=== PATIENT | male | born 1955 | race Caucasian/White ===

== ENCOUNTER 2018-04-20 11:36 | Outpatient (REF) | payer MEDICARE, SELFPAY ==
[2018-04-20 20:41] LABS: Anion Gap 8.9 mmol/L (3-11); BUN 7 mg/dL (7-18); CO2 25.1 mmol/L (21.0-32.0); CREATININE 0.81 mg/dL (0.70-1.30); Calcium 8.7 mg/dL (8.5-10.1); Chloride 100 mmol/L (98-107); Cholesterol 217 mg/dL (50-200); Glucose 109 mg/dL (70-100); HDL Cholesterol 57 mg/dL (40-60); LDL CHOLESTEROL 148 mg/dL (<100); Potassium 4.7 mmol/L (3.5-5.1); Sodium 134 mmol/L (136-145); Triglyceride 98 mg/dL (30-150)
== END 2018-04-20 11:56 ==
LOC: NCHCN 11:36
PROVIDERS: PCP Specialist/Technologist Athletic Trainer; Visit Provider Specialist/Technologist Athletic Trainer
DX: I10 Essential (primary) hypertension (principal); E78.00 Pure hypercholesterolemia, unspecified
CPT/HCPCS: 80048; 80061; 83721

== ENCOUNTER 2019-04-26 09:23 | Outpatient (REF) | payer MEDICARE, SELFPAY ==
[2019-04-26 20:22] LABS: Mean Corp. HGB Concentration 34.1 g/dL (32.0-36.0); Mean Corpuscular Hemoglobin 33.3 pg (27.0-33.0); Mean Corpuscular Volume 97.6 fL (80-95); Mean Platelet Volume 11.2 fL (8.0-11.0); Platelet Count 179 x1000/uL (130-400); RBC Distribution Width 13.3 % (11.8-14.1); White Blood Cell Count 6.07 k/cumm (4.4-10.8)
[2019-04-26 20:35] LABS: ALT 29 U/L (16-63); AST 26 U/L (15-37); Albumin 3.9 g/dL (3.4-5.0); Alkaline Phosphatase 49 U/L (46-116); BUN 8 mg/dL (7-18); CREATININE 0.88 mg/dL (0.70-1.30); Calcium 8.8 mg/dL (8.5-10.1); Calculated LDL 132 mg/dL; Chloride 100 mmol/L (98-107); Cholesterol 204 mg/dL (50-200); Glucose 117 mg/dL (70-100); HDL Cholesterol 55 mg/dL (40-60); Magnesium 1.8 mg/dL (1.8-2.4); Potassium 4.4 mmol/L (3.5-5.1); Sodium 137 mmol/L (136-145); Total Protein 7.2 g/dL (6.4-8.2); Triglyceride 88 mg/dL (30-150)
== END 2019-04-26 09:43 ==
LOC: NCHCN 09:23
PROVIDERS: PCP Specialist/Technologist Athletic Trainer; Visit Provider Specialist/Technologist Athletic Trainer
DX: E11.9 Type 2 diabetes mellitus without complications (principal); D64.9 Anemia, unspecified; I10 Essential (primary) hypertension
CPT/HCPCS: 80053; 80061; 85027; 83735

== ENCOUNTER 2019-10-27 10:29 | Outpatient (REF) | payer MEDICARE, SELFPAY ==
[2019-10-27 18:58] LABS: HCT 43.3 % (40.0-50.0); Mean Corp. HGB Concentration 34.6 g/dL (32.0-36.0); Mean Corpuscular Hemoglobin 33.9 pg (27.0-33.0); Mean Platelet Volume 10.1 fL (8.0-11.0); Platelet Count 186 x1000/uL (130-400); RBC 4.42 m/cumm (4.50-6.00); RBC Distribution Width 13.4 % (11.8-14.1); White Blood Cell Count 5.59 k/cumm (4.4-10.8)
[2019-10-27 19:31] LABS: Calculated LDL 126 mg/dL (<100); Cholesterol 195 mg/dL (<200); HDL Cholesterol 57 mg/dL (40-60); TSH 1.72 uIU/mL (0.36-3.74); Triglyceride 64 mg/dL (<150)
== END 2019-10-27 10:49 ==
LOC: NCHCN 10:29
PROVIDERS: PCP Specialist/Technologist Athletic Trainer; Visit Provider Nurse Practitioner Family
DX: E11.9 Type 2 diabetes mellitus without complications (principal); D64.9 Anemia, unspecified; E78.00 Pure hypercholesterolemia, unspecified; K70.31 Alcoholic cirrhosis of liver with ascites
CPT/HCPCS: 80061; 85027; 84443

== ENCOUNTER 2020-04-26 10:15 | Outpatient (REF) | payer MEDICARE, SELFPAY ==
[2020-04-26 19:34] LABS: HCT 41.9 % (40.0-50.0); HGB 14.3 g/dL (13.5-17.5); MCH 34.5 pg (27.0-33.0); MCHC 34.1 % (32.0-36.0); MCV 101.2 fL (80-95); MPV 10.7 fL (8.0-11.0); Platelet Count 210 10^3/uL (130-400); RBC 4.14 10^6/uL (4.36-5.78); RDW 12.3 % (11.8-14.1); RDW-SD 46.4 fL; WBC 5.23 10^3/uL (4.4-10.8)
[2020-04-26 19:54] LABS: ALT 33 U/L (16-63); AST 38 U/L (15-37); Alkaline Phosphatase 53 U/L (46-116); Anion Gap 7.2 mmol/L (3-11); BUN 5 mg/dL (7-18); Bilirubin, Total 1.1 mg/dL (0.2-1.0); CO2 27.8 mmol/L (21.0-32.0); CREATININE 0.81 mg/dL (0.70-1.30); Calcium 8.6 mg/dL (8.5-10.1); Calculated LDL 106 mg/dL (<100); Chloride 98 mmol/L (98-107); Cholesterol 180 mg/dL (<200); Glucose 87 mg/dL (74-106); HDL Cholesterol 50 mg/dL (40-60); Potassium 4.3 mmol/L (3.5-5.1); Sodium 133 mmol/L (136-145); Total Protein 7.3 g/dL (6.4-8.2); Triglyceride 122 mg/dL (<150)
[2020-04-26 20:42] LABS: Hemoglobin A1C 5.1 % (<5.7)
[2020-04-29 22:42] LABS: Vitamin B12 >2000 pg/mL (211-911)
[2020-04-29 22:49] LABS: Folate 20.8 ng/mL (See Note)
== END 2020-04-26 10:35 ==
LOC: NCHCN 10:15
PROVIDERS: PCP Nurse Practitioner Family; Visit Provider Nurse Practitioner Family
DX: D64.9 Anemia, unspecified (principal); I10 Essential (primary) hypertension; E78.00 Pure hypercholesterolemia, unspecified; E11.9 Type 2 diabetes mellitus without complications
CPT/HCPCS: 80053; 80061; 85027; 82607; 82746; 83036

== ENCOUNTER 2020-05-03 13:33 | Outpatient (REF) | payer MEDICARE, SELFPAY ==
[2020-05-03 19:30] LABS: Abs Immature Grans 0.02 10^3/uL (0.0-0.06); Absolute Basophil Count 0.05 10^3/uL (0.0-0.2); Absolute Eosinophil Count 0.13 10^3/uL (0.0-0.7); Absolute Lymphocyte Count 0.92 10^3/uL (1.2-3.4); Absolute Monocyte Count 0.52 10^3/uL (0.1-0.8); Absolute Neutrophil Count 3.89 10^3/uL (1.2-6.7); Basophils % 0.9; Eosinophils % 2.4; HCT 40.6 % (40.0-50.0); HGB 14.2 g/dL (13.5-17.5); Immature Grans % 0.4; Lymphocytes % 16.6; MCH 34.5 pg (27.0-33.0); MCV 98.5 fL (80-95); MPV 10.8 fL (8.0-11.0); Monocytes % 9.4; Neutrophils % 70.3; Nucleated RBC 0 %; Platelet Count 210 10^3/uL (130-400); RBC 4.12 10^6/uL (4.36-5.78); RDW 12.4 % (11.8-14.1); RDW-SD 45.1 fL; WBC 5.53 10^3/uL (4.4-10.8)
== END 2020-05-03 13:53 ==
LOC: NCHCN 13:33
PROVIDERS: PCP Nurse Practitioner Family; Visit Provider Nurse Practitioner Family
DX: D64.9 Anemia, unspecified (principal)
CPT/HCPCS: 85025

== ENCOUNTER 2021-04-30 12:20 | Outpatient (REF) | payer MEDICARE, SELFPAY ==
[2021-04-30 20:26] LABS: Hemoglobin A1C 5.5 % (<5.7)
[2021-04-30 20:53] LABS: Anion Gap 10.6 mmol/L (3-11); BUN 3 mg/dL (7-18); CO2 25.4 mmol/L (21.0-32.0); Calcium 8.4 mg/dL (8.5-10.1); Calculated LDL 99 mg/dL (<100); Chloride 102 mmol/L (98-107); Cholesterol 142 mg/dL (<200); Glucose 97 mg/dL (74-106); HDL Cholesterol 25 mg/dL (40-60); Potassium 4.2 mmol/L (3.5-5.1); Sodium 138 mmol/L (136-145); Triglyceride 91 mg/dL (<150)
[2021-04-30 21:11] LABS: Vitamin B12 > 2000 pg/mL (193-986)
== END 2021-04-30 12:21 | disposition home or self-care (01) ==
LOC: NCHCN 12:20
PROVIDERS: PCP Nurse Practitioner Family; Visit Provider Nurse Practitioner Family
DX: E11.9 Type 2 diabetes mellitus without complications (principal); Z00.00 Encounter for general adult medical examination without abnormal findings; I10 Essential (primary) hypertension; E78.00 Pure hypercholesterolemia, unspecified
CPT/HCPCS: 80048; 80061; 82306; 82607; 83036

== ENCOUNTER 2022-04-17 14:31 | Outpatient (REF) | payer MEDICARE, SELFPAY ==
[2022-04-17 20:15] LABS: Anion Gap 11.2 mmol/L (3-11); BUN 7 mg/dL (7-18); CO2 25.8 mmol/L (21.0-32.0); CREATININE 1.1 mg/dL (0.70-1.30); Calcium 8.6 mg/dL (8.5-10.1); Chloride 99 mmol/L (98-107); Estimated GFR 74.04 (mL/min/1.73m2); Glucose 88 mg/dL (74-106); Potassium 3.7 mmol/L (3.5-5.1); Sodium 136 mmol/L (136-145)
== END 2022-04-17 14:32 | disposition home or self-care (01) ==
LOC: NCHCN 14:31
PROVIDERS: PCP Nurse Practitioner Family; Visit Provider Physician Assistant Medical
DX: N28.9 Disorder of kidney and ureter, unspecified (principal)
CPT/HCPCS: 80048

== ENCOUNTER 2022-06-22 17:56 | Outpatient (REF) | payer MEDICARE, SELFPAY ==
[2022-06-22 20:16] LABS: Anion Gap 6.9 mmol/L (3-11); BUN 8 mg/dL (7-18); CO2 27.1 mmol/L (21.0-32.0); CREATININE 1.2 mg/dL (0.70-1.30); Calcium 8.2 mg/dL (8.5-10.1); Chloride 97 mmol/L (98-107); Glucose 137 mg/dL (74-106); Potassium 3.5 mmol/L (3.5-5.1); Sodium 131 mmol/L (136-145)
== END 2022-06-22 17:57 | disposition home or self-care (01) ==
LOC: NCHCN 17:56
PROVIDERS: PCP Nurse Practitioner Family; Visit Provider Nurse Practitioner Family
DX: N28.9 Disorder of kidney and ureter, unspecified (principal); R60.0 Localized edema
CPT/HCPCS: 80048

== ENCOUNTER 2022-06-26 13:41 | Outpatient (REF) | payer MEDICARE, SELFPAY ==
[2022-06-26 16:52] LABS: Anion Gap 5.6 mmol/L (3-11); BUN 8 mg/dL (7-18); CO2 31.4 mmol/L (21.0-32.0); CREATININE 1.2 mg/dL (0.70-1.30); Calcium 8.2 mg/dL (8.5-10.1); Chloride 98 mmol/L (98-107); Glucose 113 mg/dL (74-106); Potassium 3.2 mmol/L (3.5-5.1); Sodium 135 mmol/L (136-145)
== END 2022-06-26 13:42 | disposition home or self-care (01) ==
LOC: NCHCN 13:41
PROVIDERS: PCP Nurse Practitioner Family; Visit Provider Nurse Practitioner Family
DX: R60.0 Localized edema (principal)
CPT/HCPCS: 80048

== ENCOUNTER 2022-06-29 15:06 | Outpatient (REF) | payer MEDICARE, SELFPAY ==
[2022-06-29 17:23] LABS: Anion Gap 5.8 mmol/L (3-11); BUN 6 mg/dL (7-18); CO2 31.2 mmol/L (21.0-32.0); Calcium 8.4 mg/dL (8.5-10.1); Chloride 97 mmol/L (98-107); Estimated GFR 83.01 (mL/min/1.73m2); Glucose 133 mg/dL (74-106); Magnesium 1.7 mg/dL (1.8-2.4); Potassium 3.5 mmol/L (3.5-5.1); Sodium 134 mmol/L (136-145)
== END 2022-06-29 15:07 | disposition home or self-care (01) ==
LOC: NCHCN 15:06
PROVIDERS: PCP Nurse Practitioner Family; Visit Provider Nurse Practitioner Family
DX: K72.90 Hepatic failure, unspecified without coma (principal)
CPT/HCPCS: 80048; 83735

== ENCOUNTER 2022-11-20 15:38 | Outpatient (REF) | payer MEDICARE, SELFPAY ==
[2022-11-20 14:51] LABS: Abs Immature Grans 0.03 10^3/uL (0.0-0.06); Absolute Basophil Count 0.05 10^3/uL (0.0-0.2); Absolute Eosinophil Count 0.18 10^3/uL (0.0-0.7); Absolute Lymphocyte Count 0.78 10^3/uL (1.2-3.4); Absolute Monocyte Count 0.54 10^3/uL (0.1-0.8); Absolute Neutrophil Count 6.66 10^3/uL (1.2-6.7); Basophils % 0.6; Eosinophils % 2.2; HCT 27.6 % (40.0-50.0); HGB 9.1 g/dL (13.5-17.5); Immature Grans % 0.4; Lymphocytes % 9.5; MCH 30.7 pg (27.0-33.0); MCV 93 fL (80-95); Monocytes % 6.6; Neutrophils % 80.7; Platelet Count 253 10^3/uL (130-400); RBC 2.96 10^6/uL (4.36-5.78); RDW 16.1 % (11.8-14.1); RDW-SD 54.5 fL; WBC 8.24 10^3/uL (4.4-10.8)
[2022-11-20 15:09] LABS: ALT 30 U/L (16-63); AST 50 U/L (15-37); Albumin 2.3 g/dL (3.4-5.0); Alkaline Phosphatase 121 U/L (46-116); Anion Gap 8.3 mmol/L (3-11); BUN 13 mg/dL (7-18); Bilirubin, Total 0.7 mg/dL (0.2-1.0); CO2 26.7 mmol/L (21.0-32.0); CREATININE 1.1 mg/dL (0.70-1.30); Calcium 10.1 mg/dL (8.5-10.1); Chloride 101 mmol/L (98-107); Estimated GFR 74.04 (mL/min/1.73m2); Glucose 124 mg/dL (74-106); Magnesium 1.8 mg/dL (1.8-2.4); Potassium 4.1 mmol/L (3.5-5.1); Sodium 136 mmol/L (136-145)
== END 2022-11-20 15:39 | disposition home or self-care (01) ==
LOC: NCHCN 15:38
PROVIDERS: PCP Nurse Practitioner Family; Visit Provider Nurse Practitioner Family
DX: K72.90 Hepatic failure, unspecified without coma (principal)
CPT/HCPCS: 80053; 83735; 85025